=== PATIENT | female | born 1980 | race African-American/Black ===

== ENCOUNTER → 2016-08-09 | Outpatient (CLI) | payer OTHER ==
[~2016-08-09] MED LIST: LISI-338 PO; METO-269 PO; QUET50TA5 PO; SERT25TA PO; TOPI100T39 PO
[2016-08-09 13:05] LABS: FREE T4 1.04 ng/dL (0.76-1.46)
== END | disposition home or self-care (01) ==
LOC: LAB 12:10
PROVIDERS: ATTEND Psychiatry & Neurology Neurology
DX: R53.83 Other fatigue (principal)
CPT/HCPCS: 36415; 82550; 84439; 84443